=== PATIENT | female | born 1980 | race Asian ===

== ENCOUNTER 2017-03-16 14:53 | Emergency (ER) | payer OTHER, MEDICAID ==
[~2017-03-16] VITALS: Ht 165.1 cm; Wt 73.9 kg
[~2017-03-16 14:53] MED LIST: NKM; NORCO 5-325 TA1 EACH ORAL; ZOFRAN ODT4 MG ORAL
[2017-03-16] MEDS ORDERED: IBUPROFEN600 MG ORAL (16:20)
[2017-03-16 16:25] VITALS: BP 115/76
--- NOTE | 2017-03-16 16:36 | Emergency Room Report ---
History of Present Illness General Chief Complaint: Lower Extremity Injury Source: Patient Present Illness HPI 36-year-old female presents to ED complaining of right ankle pain. States she' s had pain for last 2 weeks. Denies any recent trauma. Notes pain to the back of the ankle, intermittent, 10 out of 10, worse with walking. Nonradiating. Patient denies any pain at this time. States that she rested her ankle yesterday and states it did improve somewhat. Denies any other injuries. No other aggravating relieving factors. Denies any associated symptoms Allergies: Coded Allergies: No Known Allergies (Unverified , 10/24/13) Patient History Past Medical History: none Past Surgical History: none Pertinent Family History: none Social History: Denies: alcohol use, drug use, smoking Last Menstrual Period: 03/02/17 Now: No Immunizations: UTD Reviewed Nursing Documentation: PMH: Agreed, PSxH: Agreed Nursing Documentation-PMH Past Medical History: No History, Except For Review of Systems All Other Systems: negative except mentioned in HPI Physical Exam Vital Signs Date Time Temp Pulse Resp B/P Pulse Ox O2 Delivery O2 Flow Rate FiO2 03/16/17 15:05 98.1 86 16 115/76 98 Room Air Sp02 EP Interpretation: reviewed, normal General Appearance: no apparent distress, alert, GCS 15, non-toxic Head: normocephalic Eyes: bilateral eye PERRL, bilateral eye normal inspection ENT: normal ENT inspection Neck: normal inspection Respiratory: normal inspection Cardiovascular #1: normal inspection Gastrointestinal: normal inspection Rectal: deferred Genitourinary: no CVA tenderness Musculoskeletal: tender - TTP R achilles. full flexion/extension noted Neurologic: alert, oriented x3, responsive, motor strength/tone normal, sensory intact, speech normal Psychiatric: normal inspection Skin: normal inspection Lymphatic: normal inspection Procedures Splinting Splinting : Consent: Verbal Pre-Made Type: REUBEN wrap - R ankle Pre-Proc Neuro Vasc Exam: normal Post-Proc Neuro Vasc Exam: normal Patient Tolerated: Well Complications: None Medical Decision Making Diagnostic Impression: Primary Impression: Achilles tendon pain ER Course Hospital Course 36-year-old F presents to ED complaining of R foot pain x 2 weeks Differential diagnoses include: Fracture, dislocation, sprain, contusion Clinical course Patient placed on stretcher. After initial history, exam reveals a female in no acute distress. There is no bruising or deformity to right ankle. Full range of motion noted. There is some tenderness to palpation over the right Achilles. Negative Jimenez test. Patient declined pain medication at this time. I ordered x-rays Xrays prelim read shows no acute fracture/dislocation. Likely Achilles tendinitis. Recommend rest, NSAIDs, ice, elevation placed in reuben wrap, given crutches Diagnosis - Achilles tendon pain Stable and discharged to home with prescription for Motrin. apply ice, keep elevated. weight bear as tolerated. Followup with PMD. Return to ED if symptoms recur or worsen Other X-Ray Diagnostic Results Other X-Ray Diagnostic Results : X-Ray Ordered: R ankle, R foot EP Interpretation: Yes Findings: no fractures, no dislocation, no soft tissue swelling Number of Views: 3 Other Impression Right ankle-No fracture, no dislocation, no soft tissue swelling Right foot-No fracture, no dislocation, no soft tissue swelling Last Vital Signs Date Time Temp Pulse Resp B/P Pulse Ox O2 Delivery O2 Flow Rate FiO2 03/16/17 15:05 98.1 86 16 115/76 98 Room Air Status: improved Disposition: HOME, SELF-CARE Condition: Stable Scripts Ibuprofen* (MOTRIN*) 600 Mg Tablet 600 MG ORAL Q8H Y for For Pain, #30 TAB 0 Refills Prov: EVENS SAINI M.D. 03/16/17 Departure Forms: Return to Work Return to Work Date: Mar 19, 2017 Work Restrictions: No Prolonged Standing Patient Instructions: Achilles Tendinitis EVENS SAINI M.D. March 16, 2017 16:36
--- NOTE | 2017-03-17 10:48 | Diagnostic Imaging Report ---
Indication: PAIN Technique: 3 views right foot Comparison: none Findings: No acute fractures. No dislocations. Joint spaces are preserved. Impression: Negative
--- NOTE | 2017-03-17 10:49 | Diagnostic Imaging Report ---
Indication: PAIN Technique: 3 views of the right ankle Comparison: none Findings: No acute fractures. No dislocations. Joint spaces are preserved. Impression: Negative
== END 2017-03-16 16:25 | disposition home or self-care (01) ==
LOC: EMR 16:10
DX: M25.571 Pain in right ankle and joints of right foot (principal)
CPT/HCPCS: 29540; 99283